=== PATIENT | female | born 1940 | race Two or more races ===

== ENCOUNTER 2020-05-22 11:02 | Outpatient (CLI) | payer OTHER | END 2020-05-22 12:45 | disposition home or self-care (01) | LOC: OFIC 805 11:02 | PROVIDERS: ATTEND Otolaryngology | DX: H60.8X2 Other otitis externa, left ear (principal); H61.23 Impacted cerumen, bilateral ==

== ENCOUNTER → 2020-06-15 | Outpatient (CLI) | payer OTHER | END | disposition home or self-care (01) | LOC: OFIC 805 09:30 | PROVIDERS: ATTEND Otolaryngology | DX: H90.3 Sensorineural hearing loss, bilateral (principal); H61.23 Impacted cerumen, bilateral ==